=== PATIENT | male | born 1965 ===

== ENCOUNTER 2024-05-28 13:07 | Emergency (ER) | payer MEDICAID ==
[~2024-05-28] VITALS: Ht 190.5 cm; Wt 104.5 kg
[2024-05-28 13:12] VITALS: TEMP 97.9
[2024-05-28] MEDS ORDERED: PENI500T2 PO (14:41)
[2024-05-28] MEDS ORDERED: IBUP-1492 PO (14:41)
[2024-05-28] MEDS: KETOROLAC TROMETHAMINE 30 MG/ML VIAL IM ONE (14:50)
[2024-05-28] MEDS ORDERED: HYDR-4062 PO (14:56)
[2024-05-28 15:05] VITALS: BP 148/2; PULSE 78; RESP 18; O2SAT 99
== END 2024-05-28 15:16 | disposition home or self-care (01) ==
LOC: EMS 13:07
DX: K08.89 Other specified disorders of teeth and supporting structures (principal)
CPT/HCPCS: 99283; 96372; J1885